=== PATIENT | female | born 1990 | race Caucasian/White ===

== ENCOUNTER 2021-08-21 10:00 | Inpatient (IN) ==
[2021-08-21] MEDS ORDERED: miSOPROStoL 25 MCG TABLET PO PRN (14:08)
[2021-08-21] MEDS ORDERED: Azithromycin 500 MG in 0.9 % Sodium Chloride 250 ML IVPB PRN (14:10)
[2021-08-21] MEDS ORDERED: Naloxone 0.4 MG/ML INJ IVP PRN (14:10)
[2021-08-21] MEDS ORDERED: Famotidine 20 MG/2 ML VIAL IVP PRN (14:10)
[2021-08-21] MEDS ORDERED: Lidocaine 1% 20 ML MDV ID PRN (14:10)
[2021-08-21] MEDS ORDERED: Metoclopramide 10 MG/2 ML VIAL IVP PRN (14:10)
[2021-08-21] MEDS ORDERED: *HR* Nalbuphine 10 MG/ML AMPUL IV PRN (14:10)
[2021-08-21] MEDS ORDERED: Ondansetron 4 MG/2 ML VIAL IVP PRN (14:10)
[2021-08-21] MEDS ORDERED: Ringers Solution, Lactated 1,000 ML IVC SCH (14:15)
[2021-08-21] MEDS ORDERED: EPHEDrine 50 MG/ML VIAL IVP PRN (14:38)
[2021-08-21] MEDS ORDERED: Epidural Premix (fent/bupiv) 110 ML EP SCH (14:45)
[2021-08-21 15:41] LABS: Amphetamine Screen,Urine Negative ng/mL (Cutoff=1000); Barbiturate Screen,Urine Negative ng/mL (Cutoff=200); Benzodiazepines Screen,Urine Positive ng/mL (Cutoff=200); Cannabinoid Screen,Urine Positive ng/mL (Cutoff = 50); Cocaine Screen,Urine Negative ng/mL (Cutoff= 300); Opiate Screen,Urine Negative ng/mL (Cutoff=300); Phencyclidine Screen,Urine Negative ng/mL (Cutoff=25)
[2021-08-21 15:42] LABS: Influenza A PCR Negative (Negative); Influenza B PCR Negative (Negative); Resp. Syncytial Virus PCR Negative (Negative); SARS-CoV-2 by PCR (In House) Negative (Negative)
[2021-08-21 16:18] LABS: Basophils % 0.2 %; Eosinophils % 0.2 %; Hematocrit 32.8 % (35.3-44.9); Hemoglobin 11.4 g/dL (11.5-15.4); Immature Granulocytes % 0.6 % (0-4); Lymphocytes # 1.6 K/mcL (0.6-4.6); Lymphocytes % 15.8 %; Mean Corpuscular HGB Conc 34.8 g/dL (31.6-35.5); Mean Corpuscular Hemoglobin 31.1 pg (28.0-33.3); Mean Corpuscular Volume 89.4 fL (83.0-100.0); Monocytes # 0.4 K/mcL (0.0-1.3); Monocytes % 4.1 %; Platelet Count 130 K/mcL (140-400); Red Blood Count 3.67 M/mcL (3.82-4.97); Red Cell Distribution Width 12.2 % (11.5-14.5); Segmented Neutrophils % 79.1 %; White Blood Count 10.1 K/mcL (4.3-11.1)
[2021-08-21] MEDS: Oxytocin 20 units/ LR 1000 mL 20 UNIT/1,000 ML BAG IVC SCH (16:52)
[2021-08-21] MEDS ORDERED: Nicotine 14 MG PATCH.TD24 TD SCH (19:45)
[2021-08-22] MEDS: Oxytocin 20 units/ LR 1000 mL 20 UNIT/1,000 ML BAG IVC SCH (05:15)
[2021-08-22] MEDS ORDERED: Ondansetron ODT 4 MG TAB.RAPDIS SL PRN (05:37)
[2021-08-22] MEDS ORDERED: Rho Immune Globulin 1,500 UNIT SYRINGE IM PRN (05:37)
[2021-08-22] MEDS ORDERED: Measles/Mumps/Rubella Vacc 0.5 ML VIAL SQ PRN (05:37)
[2021-08-22] MEDS ORDERED: Lanolin 7 G OINT...G. TP PRN (05:37)
[2021-08-22] MEDS ORDERED: Oxytocin 20 units/ LR 1000 mL 20 UNIT/1,000 ML BAG IVC SCH (05:37)
[2021-08-22] MEDS ORDERED: Benzocaine/Menthol 56 GM AEROSOL SPRAY TP PRN (05:37)
[2021-08-22] MEDS: Ibuprofen 600 MG TABLET PO SCH ×3 (05:58→20:53)
[2021-08-22] MEDS: Prenatal Vit/FA 1 EACH TABLET PO SCH (07:55)
[2021-08-22] MEDS: Acetaminophen 325 MG TABLET PO SCH ×2 (15:15→20:53)
[2021-08-22] MEDS: Fluticasone Propionate Nasal 50 MCG/SPRAY BOTTLE NS SCH (15:18)
[2021-08-23] MEDS: Ibuprofen 600 MG TABLET PO SCH ×3 (03:36→20:08)
[2021-08-23] MEDS: Acetaminophen 325 MG TABLET PO SCH ×2 (03:36→09:45)
[2021-08-23 03:42] LABS: Basophils % 0.2 %; Eosinophils # 0.1 K/mcL (0.0-0.6); Eosinophils % 1.1 %; Hematocrit 25.7 % (35.3-44.9); Immature Granulocytes % 0.8 % (0-4); Lymphocytes # 2.3 K/mcL (0.6-4.6); Lymphocytes % 24.8 %; Mean Corpuscular HGB Conc 34.6 g/dL (31.6-35.5); Mean Corpuscular Hemoglobin 31.8 pg (28.0-33.3); Mean Corpuscular Volume 91.8 fL (83.0-100.0); Mean Platelet Volume 13.4 fL (9.4-12.4); Monocytes # 0.5 K/mcL (0.0-1.3); Monocytes % 5.5 %; Neutrophils # 6.2 K/mcL (1.6-8.9); Platelet Count 105 K/mcL (140-400); Red Cell Distribution Width 12.1 % (11.5-14.5); Segmented Neutrophils % 67.6 %; White Blood Count 9.2 K/mcL (4.3-11.1)
[2021-08-23 03:44] LABS: Hemoglobin 8.9 g/dL (11.5-15.4)
[2021-08-23] MEDS: Prenatal Vit/FA 1 EACH TABLET PO SCH (09:45)
[2021-08-23] MEDS: Fluticasone Propionate Nasal 50 MCG/SPRAY BOTTLE NS SCH (09:55)
[2021-08-23 20:11] VITALS: O2SAT 100
[2021-08-24] MEDS: Ibuprofen 600 MG TABLET PO SCH (07:43)
[2021-08-24] MEDS: Fluticasone Propionate Nasal 50 MCG/SPRAY BOTTLE NS SCH (07:44)
[2021-08-24] MEDS: Prenatal Vit/FA 1 EACH TABLET PO SCH (07:44)
[2021-08-24 08:07] VITALS: BP 112/74; PULSE 62; TEMP 99.1
[2021-08-24] MEDS ORDERED: Iron Polysaccharide Complex 150 MG CAPSULE PO SCH (09:00)
== END 2021-08-24 18:23 | disposition home or self-care (01) | DRG 806 ==
LOC: 1NENULAB 13:35 → 1NENUOBS 08-22 05:45
PROVIDERS: ADMIT Student in an Organized Health Care Education/Training Program; ATTEND Student in an Organized Health Care Education/Training Program